=== PATIENT | female | born 2000 | race Two or more races ===

== ENCOUNTER 2018-03-21 14:08 | Emergency (ER) | payer OTHER ==
[2018-03-21 14:14] VITALS: BP 111/74; PULSE 107; TEMP 99.2; BMI 23.1
--- NOTE | 2018-03-21 14:21 | PDOC ---
Rapid Medical Evaluation Chief Complaint: Ear Problem Time Seen by Provider: 03/21/18 14:15 Medical Evaluation: Allergies Allergy/AdvReac Type Severity Reaction Status Date / Time No Known Allergies Allergy Verified 03/21/18 14:10 Vital Signs Temp Pulse Resp BP Pulse Ox 99.2 F 107 H 18 111/74 100 03/21/18 14:12 03/21/18 14:12 03/21/18 14:12 03/21/18 14:12 03/21/18 14:12 03/21/18 14:20 Pt. presents with a cyst to her inner ear for three days. Painful to the touch. No changes in hearing Exam: ambulatory, no acute respiratory distress. 1cm round cyst to top of external auditory canal; no drainage Orders: nothing Pt. to proceed to FT for further evaluation.
--- NOTE | 2018-03-21 15:17 | PDOC ---
History of Present Illness - General Chief Complaint: Ear Problem Stated Complaint: LT EAR CYST Time Seen by Provider: 03/21/18 14:15 History Source: Patient Exam Limitations: No Limitations - History of Present Illness Initial Comments: 03/21/18 15:20 This a 17-year-old girl without significant past medical history who presents emergency Department with cyst to her left ear for the past 4 days. Patient states she is been trying to squeeze it to express fluid for the past 2 days but has been unsuccessful. She states her boyfriend squeezed her ear today which caused it to start draining. Patient is now complaining of pain to the affected ear. She denies fevers, chills, hearing loss, headaches, jaw pain, periauricular pain. Past History - Past Medical History Allergies/Adverse Reactions: Allergies Allergy/AdvReac Type Severity Reaction Status Date / Time No Known Allergies Allergy Verified 03/21/18 14:10 Home Medications: Ambulatory Orders Cephalexin Monohydrate [Keflex -] 500 mg PO Q6H #28 capsule 03/21/18 Ciprofloxacin HCl/Dexameth [Ciprodex Otic Suspension] 3 drop BID #1 bottle COPD: No - Suicide/Smoking/Psychosocial Hx Smoking History: Never smoked Have you smoked in the past 12 months: No Information on smoking cessation initiated: No Hx Alcohol Use: No Drug/Substance Use Hx: No Substance Use Type: Marijuana Review of Systems - Review of Systems Able to Perform ROS?: Yes Is the patient limited Maltese proficient: No Constitutional: No: Symptoms Reported HEENTM: Yes: See HPI Respiratory: No: Symptoms reported Cardiac (ROS): No: Symptoms Reported ABD/GI: No: Symptoms Reported : No: Symptoms Reported Musculoskeletal: No: Symptoms Reported Integumentary: No: Symptoms Reported Neurological: No: Symptoms reported Endocrine: No: Symptoms Reported Hematologic/Lymphatic: No: Symptoms Reported *Physical Exam - Vital Signs Last Vital Signs Temp Pulse Resp BP Pulse Ox 99.2 F 107 H 18 111/74 100 03/21/18 14:12 03/21/18 14:12 03/21/18 14:12 03/21/18 14:12 03/21/18 14:12 - Physical Exam General Appearance: Yes: Appropriately Dressed. No: Apparent Distress HEENT: positive: EOMI, MARTHA, TMs Normal, Pharynx Normal, Other (Flesh-colored growth with scab noted to the opening of the external auditory canal of the left ear at the 12 o'clock position) Neck: positive: Trachea midline, Supple Respiratory/Chest: positive: Lungs Clear, Normal Breath Sounds. negative: Respiratory Distress, Accessory Muscle Use Medical Decision Making - Medical Decision Making 03/21/18 15:23 A/P: 17-year-old female with growth to the external auditory canal of the left ear Subcentimeter Flesh-colored growth with scabbing noted to the 12 o'clock position of the opening of the external auditory canal of the left ear No drainage present No tenderness to the tragus or periauricular areas No erythema present TMs pearly quinn with appropriate light reflex I'll treat the patient with Ciprodex and Keflex as outpatient with referral to Dr. Miller's office. Dr. Miller's office contacted an appointment secured for patient at 8:30 on March 21. Patient is aware of appointment and will follow-up at that time. Patient verbalizes understanding of discharge instructions. *DC/Admit/Observation/Transfer Diagnosis at time of Disposition: Abscess - Discharge Dispostion Disposition: HOME Condition at time of disposition: Stable Decision to Admit order: No - Prescriptions Prescriptions: Cephalexin Monohydrate [Keflex -] 500 mg PO Q6H #28 capsule Ciprofloxacin HCl/Dexameth [Ciprodex Otic Suspension] 3 drop BID #1 bottle - Referrals Referrals: Ayush Miller MD [Staff Physician] - - Patient Instructions Additional Instructions: Take Keflex 500 mg 4 times a day for the next 7 days Finish all antibiotics even if you feel better. Apply warm compresses to your ear as needed. Return to emergency department for any worsening pain, drainage, hearing loss, or any other concerns. Thank you very much for choosing us to provide your emergent health care needs. - Post Discharge Activity
== END 2018-03-21 15:22 | disposition home or self-care (01) ==
LOC: JERFT 14:08
DX: H60.02 Abscess of left external ear (principal)
CPT/HCPCS: 99281-25

== ENCOUNTER 2018-07-25 12:05 | Emergency (ER) | payer OTHER ==
[2018-07-25 12:29] VITALS: BP 115/76; PULSE 92; TEMP 99.1; BMI 20.9
[2018-07-25] MEDS ORDERED: ACETAMINOPHEN 500 MG TABLET (FP) PO ONE (12:41)
[2018-07-25] MEDS ORDERED: ACETAMINOPHEN 325 MG TABLET (FP) ONE (12:48)
[2018-07-25 12:50] LABS: URINE APPEARANCE CLEAR; URINE BILIRUBIN NEGATIVE (<2.0 mg/dL); URINE COLOR YELLOW; URINE GLUCOSE (UA) NEGATIVE (NEGATIVE); URINE KETONE TRACE (NEGATIVE); URINE LEUK ESTERASE NEGATIVE (NEGATIVE); URINE NITRITE NEGATIVE (NEGATIVE); URINE PROTEIN NEGATIVE (NEGATIVE); URINE UROBILINOGEN NEGATIVE mg/dL (0.2-1.0)
--- NOTE | 2018-07-25 12:54 | PDOC ---
History of Present Illness - General Chief Complaint: Cold Symptoms Stated Complaint: Cold Symptoms Time Seen by Provider: 07/25/18 12:29 History Source: Patient Exam Limitations: No Limitations - History of Present Illness Initial Comments: 07/25/18 12:50 17-year-old female presents the emergency room with complaints of URI symptoms including a dry hacking cough for the past few days along with mild fatigue and nausea. Patient also unsure if she is and requesting test. 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 The patient has no other complaints at this time. Timing/Duration: other Severity: moderate Associated Symptoms: reports: cough, malaise Past History - Past Medical History Allergies/Adverse Reactions: Allergies Allergy/AdvReac Type Severity Reaction Status Date / Time No Known Allergies Allergy Verified 07/25/18 12:26 Home Medications: Ambulatory Orders NK [No Known Home Medication] 07/25/18 Anemia: Yes (IRON SUPPLEMENTS) COPD: No DVT: No Dementia: No - Suicide/Smoking/Psychosocial Hx Smoking History: Never smoked Have you smoked in the past 12 months: No Information on smoking cessation initiated: No Hx Alcohol Use: No Drug/Substance Use Hx: No Substance Use Type: Marijuana Patient Lives Alone: No Lives with/in: parents Review of Systems - Review of Systems Able to Perform ROS?: Yes Constitutional: Yes: Weakness HEENTM: Yes: Nose Congestion Respiratory: Yes: Cough Cardiac (ROS): No: Symptoms Reported ABD/GI: Yes: Nausea (mild) Musculoskeletal: No: Symptoms Reported Integumentary: No: Symptoms Reported Neurological: No: Headache, Dizziness *Physical Exam - Vital Signs Last Vital Signs Temp Pulse Resp BP Pulse Ox 99.1 F 92 H 16 115/76 99 07/25/18 12:26 07/25/18 12:26 07/25/18 12:26 07/25/18 12:26 07/25/18 12:26 - Physical Exam General Appearance: Yes: Nourished, Appropriately Dressed. No: Apparent Distress HEENT: positive: EOMI, MARTHA, TMs Normal, Pharynx Normal. negative: Pale Conjunctivae Neck: positive: Supple Respiratory/Chest: positive: Lungs Clear, Normal Breath Sounds. negative: Respiratory Distress, Accessory Muscle Use Cardiovascular: positive: Regular Rhythm, Regular Rate. negative: Murmur Gastrointestinal/Abdominal: positive: Soft. negative: Tenderness Extremity: positive: Normal Capillary Refill Integumentary: positive: Normal Color, Warm, Moist Neurologic: positive: Motor Strength 5/5 (ambulatory) Medical Decision Making - Medical Decision Making 07/25/18 12:55 Patient URI symptoms along with uncertainty of . Patient requesting test. Patient on exam had no acute findings but was noted to have a dry hacking cough during exam. UA / ordered. Assessment be given once is confirmed. Patient otherwise ordered for Tylenol. 07/25/18 13:12 Laboratory Tests 07/25/18 12:41 Urine Ketones Trace H Urine Nitrite Negative Ur Leukocyte Esterase Negative Urine HCG, Qual Negative Patient be discharged home with recommendations to take Claritin Robitussin for cough and Motrin or Tylenol for discomfort. *DC/Admit/Observation/Transfer Diagnosis at time of Disposition: URI, acute - Discharge Dispostion Disposition: HOME Condition at time of disposition: Good - Referrals - Patient Instructions Printed Discharge Instructions: DI for Viral Upper Respiratory Infection -- Adult Additional Instructions: Please drink plenty of fluids and take Motrin or Tylenol for discomfort. please take medication as prescribed for the next few days to help alleviate nasal congestion. Take Robitussin as needed for coughing - Post Discharge Activity
[2018-07-25 13:01] LABS: HCG,QUALITATIVE URINE NEGATIVE
[2018-07-25] MEDS ORDERED: guaiFENesin 200 MG/10 ML 10 ML UNIT-DOSE CUPS PO ONE (13:12)
[2018-07-25] MEDS ORDERED: guaiFENesin 200 MG/10 ML 10 ML UNIT-DOSE CUPS ONE (13:14)
== END 2018-07-25 13:41 | disposition home or self-care (01) ==
LOC: JERFT 12:05
DX: J06.9 Acute upper respiratory infection, unspecified (principal); B97.89 Other viral agents as the cause of diseases classified elsewhere
CPT/HCPCS: 81003; 84703; 99281-25